=== PATIENT | female | born 1990 | race African-American/Black ===

== ENCOUNTER 2016-09-16 11:55 | Emergency (ER) | payer SELFPAY ==
[~2016-09-16] VITALS: Ht 162.6 cm; Wt 63.5 kg
--- NOTE | 2016-09-16 12:48 | Emergency Room Report ---
History of Present Illness General Chief Complaint: To Be Triaged Source: Patient, Significant Other Present Illness HPI Patient complains of rash over her body that began this morning. States that she is from [place] and is staying at a hotel where she is visiting. States that she will this morning with a rash all over her body that is itchy. States that she took Benadryl and [id number] cortisone without improvement of symptoms. Patient has a history of mixed connective tissue disease and is not receiving any treatment for it currently. Denies any current n/v/f/c/d, abd pain, back pain, neck pain, photophobia, phonophobia, CP, SOB or headache. Allergies: Coded Allergies: No Known Allergies (Unverified , 09/16/16) Patient History Past Medical History: see triage record Immunizations: UTD Reviewed Nursing Documentation: PMH: Agreed, PSxH: Agreed Review of Systems All Other Systems: negative except mentioned in HPI Physical Exam Vital Signs Date Time Temp Pulse Resp B/P Pulse Ox O2 Delivery O2 Flow Rate FiO2 09/16/16 12:54 98.8 111 14 114/81 98 Room Air Sp02 EP Interpretation: reviewed, normal General Appearance: no apparent distress, alert, GCS 15, non-toxic Head: normocephalic, atraumatic Eyes: bilateral eye PERRL, bilateral eye normal inspection ENT: hearing grossly normal, normal pharynx, no angioedema, normal voice Neck: full range of motion, supple/symm/no masses Respiratory: chest non-tender, lungs clear, normal breath sounds, speaking full sentences Cardiovascular #1: regular rate, rhythm, no edema Neurologic: alert, oriented x3, responsive, motor strength/tone normal, sensory intact, speech normal Psychiatric: judgement/insight normal, memory normal, mood/affect normal, no suicidal/homicidal ideation Skin: normal color, warm/dry, well hydrated, rash - papular rash scattered on throughout body Lymphatic: no adenopathy Medical Decision Making [place] Attestation Dr. Askew is my supervising physician with whom patient management has been discussed with. Diagnostic Impression: Primary Impression: Allergic reaction Qualified Codes: T78.40XA - Allergy, unspecified, initial encounter Additional Impression: Acute urticaria ER Course Pt. presents to the ED c/o rash Ddx considered but are not limited to contact dermatitis, allergic reaction, insect bites, anaphylaxis, shingles Vital signs: are WNL, pt. is afebrile H&PE are most consistent with allergic reaction to unknown substance ORDERS: none required at this time, the diagnosis is clinical ED INTERVENTIONS: Prednisone DISCHARGE: At this time pt. is stable for d/c to home. Will provide printed patient care instructions, and any necessary prescriptions. Care plan and follow up instructions have been discussed with the patient prior to discharge. Laboratory Tests Test 09/16/16 12:55 Urine HCG, Qualitative Negative Status: unchanged Disposition: HOME, SELF-CARE Condition: Stable Scripts Famotidine (PEPCID AC) 20 Mg Tablet 20 MG PO DAILY for 10 Days, #10 TAB Prov: GEORGE HUNTER P.A. 09/16/16 Hydroxyzine Hcl (HYDROXYZINE HCL) 25 Mg Tablet 25 MG PO TID for Itching/Pruritis for 10 Days, #30 TAB Prov: MARCO ANTONIO HUNTERM P.A. 09/16/16 Prednisone* (PREDNISONE*) 50 Mg Tablet 50 MG ORAL DAILY for 5 Days, #5 TAB 0 Refills Prov: GEORGE HUNTER P.A. 09/16/16 GEORGE HUNTER P.A. Sep 16, 2016 12:48
[2016-09-16] MEDS ORDERED: PREDNISONE50 MG ORAL (13:37)
[2016-09-16] MEDS ORDERED: PEPCID AC20 M2 PO (13:37)
[2016-09-16] MEDS ORDERED: HYDROXYZINE HCL25 M1 PO (13:37)
[2016-09-16 13:40] VITALS: BP 114/81
[2016-09-16] MEDS ORDERED: PredniSONE 20mg tab ORAL ONE (13:45)
[2016-09-16 13:55] VITALS: BP 114/81
== END 2016-09-16 13:55 | disposition home or self-care (01) ==
LOC: EMR 12:40
DX: T78.40XA Allergy, unspecified, initial encounter (principal); X58.XXXA Exposure to other specified factors, initial encounter; L50.9 Urticaria, unspecified
CPT/HCPCS: 81025; 99284